=== PATIENT | female | born 1935 | race Caucasian/White ===

== ENCOUNTER → 2018-04-15 14:35 | Outpatient (REF) | payer MEDICARE, OTHER, SELFPAY | LOC: LAB 14:35 | PROVIDERS: Visit Provider Internal Medicine | DX: L08.9 Local infection of the skin and subcutaneous tissue, unspecified (principal) | CPT/HCPCS: 87070; 87075; 87205 ==

== ENCOUNTER → 2018-04-15 16:03 | Outpatient (CLI) | payer MEDICARE, OTHER, SELFPAY | PROVIDERS: PCP Specialist; Visit Provider Internal Medicine | DX: L08.9 Local infection of the skin and subcutaneous tissue, unspecified (principal); R60.0 Localized edema; I87.2 Venous insufficiency (chronic) (peripheral); L97.812 Non-pressure chronic ulcer of other part of right lower leg with fat layer exposed | CPT/HCPCS: 11042; 99213 ==

== ENCOUNTER → 2018-04-22 10:15 | Outpatient (CLI) | payer MEDICARE, OTHER, SELFPAY | PROVIDERS: PCP Specialist; Visit Provider Internal Medicine | DX: I87.2 Venous insufficiency (chronic) (peripheral) (principal); L97.812 Non-pressure chronic ulcer of other part of right lower leg with fat layer exposed; M79.661 Pain in right lower leg; R60.0 Localized edema | CPT/HCPCS: 11042 ==

== ENCOUNTER → 2018-04-29 10:19 | Outpatient (CLI) | payer MEDICARE, OTHER, SELFPAY ==
--- NOTE | 2018-04-29 | OV.WND_ITS ---
Progress Note Details Patient Name: Rebecca Belle Patient Number: [id number] PatientPatientDate: 04/29/2018 Clinician: Dacia Marcus Physician / Retail Beauty Specialist: Naseem Weiner SUBJECTIVE Chief Complaint This information was obtained from the patient Right Pre-Tibia wound from a fall. Allergies hydrocodone (Severity: Moderate, Reaction: Nausea) HPI This information was obtained from the patient 04/29/18. Seen by Dr. Weiner. The patient reports significant improvement in terms of pain and drainage associated with the right lower leg trauma wound since her last visit and she continues to applying topical gentamicin to treat the wound infection. 04/22/18. Seen by Dr. Weiner. The patient's wound culture from her last visit was unremarkable however she continues to report some moderate, intermittent pain associated with the right lower leg trauma wounds. She also has some chronic right lower leg swelling however does not wear a compression stocking. 04/15/18. Seen by Dr. Weiner. The patient's new to our clinic and presents with a chronic right lower leg trauma wound that occurred about a month ago when she fell down her steps while carrying her cat. She states it's painful despite completing a course of Keflex recently however she does not report fevers or feeling unwell otherwise. Past Medical History This information was obtained from the patient Patient has a medical history of: Dementia Leg Ulcer Arthritis Hyperlipidemia Complaints and Symptoms This information was obtained from the patient Patient complains of: General Notes: I have reviewed and concur with the Review of Systems and Past Family Social History documents completed by the clinician, I have reviewed and concur with the Wound Assessment document completed by the clinician Cardiovascular (Central/Peripheral): Lower extremity (leg) swelling Ear/Nose/Mouth/Throat: Hearing Loss / Aid Hematologic/Lymphatic: Bleeding Tendency Integumentary (Hair/Skin/Nails): Open Sore Prior Wound History: Drainage, Erythema, Pain Psychiatric: Memory Loss Patient denies complaints or symptoms related to: Cardiovascular (Central): Irregular heart beat Cardiovascular (Central/Peripheral): Intermittent Claudication, Lower extremity (leg) resting pain Constitutional Symptoms (General Health): Chills, Fever Hematologic/Lymphatic: Bleeding / Clotting Disorders Neurological: Loss of Protective Sensation Respiratory: Shortness of Breath Additional Information Does patient have a history of Cancer? Yes? Complete all questions.: Yes Location of Cancer: Breast Cancer. OBJECTIVE Constitutional BP elevated; Afebrile; Alert and in no distress. Well developed. Alert. Clean appearing.. Height/Length: 65 in (165.1 cm), Weight: 133.8 lbs (60.82 kgs), BMI: 22.3, Temperature: 98.3 ?F (36.83 ?C), Pulse: 71 bpm, Respiratory Rate: 18 breaths/min, Blood Pressure: 154/81 mmHg, Pulse Oximetry: 98 %. Respiratory: No respiratory distress. Even respirations and without use of accessory muscles.. Cardiovascular: 1+ right lower extremity edema. Integumentary (Hair, Skin) No periwound erythema, warmth, or significant drainage. No periwound rashes appreciated or noted otherwise.. Refer to appropriate clinician wound documentation for this visit; right lower leg wound extends to subcut with base partially covered with pink granulation, remainder fibrin and slough. Wound #1 Right, Lateral Leg is a chronic Full Thickness Venous Ulcer and has received a status of Not Healed. Subsequent wound encounter measurements are 0.1cm length x 0.1cm width x 0.1cm depth, with an area of 0.01 sq cm and a volume of 0.001 cubic cm. No tunneling has been noted. No sinus tract has been noted. No undermining has been noted. There is a small amount of serosanguineous drainage noted which has no odor. The patient reports a wound pain of level 0/10. The wound margin is attached. Wound bed has Yes epithelialization, No eschar, Yes slough, No granulation. The periwound skin texture is normal. The periwound skin moisture is normal. The periwound skin color is normal. The temperature of the periwound skin is WNL. Periwound skin does not exhibit signs or symptoms of infection. Local Pulse is Palpable. Wound #2 Right, Medial Leg is a chronic Full Thickness Venous Ulcer and has received a status of Not Healed. Subsequent wound encounter measurements are 0.5cm length x 0.1cm width x 0.1cm depth, with an area of 0.05 sq cm and a volume of 0.005 cubic cm. No tunneling has been noted. No sinus tract has been noted. No undermining has been noted. There is a scant amount of serosanguineous drainage noted which has no odor. The patient reports a wound pain of level 0/10. The wound margin is attached. Wound bed has No epithelialization, No eschar, Yes slough, Yes bright red, pink, spongy granulation. The periwound skin moisture is normal. The periwound skin exhibited: Edema, Erythema. The temperature of the periwound skin is WNL. Periwound skin does not exhibit signs or symptoms of infection. Local Pulse is Palpable. Neurological: Cranial nerves grossly intact with symmetric function normal by informal observation.. ASSESSMENT Active Problems ICD-10 (Encounter Diagnosis) S81.801D - Unspecified open wound, right lower leg, subsequent encounter (Encounter Diagnosis) L08.9 - Local infection of the skin and subcutaneous tissue, unspecified PROCEDURES Wound #1 Wound #1 (Venous Ulcer) is located on the right, lateral leg. A skin/ subcutaneous tissue level surgical debridement with a total area debrided of 0.01 sq cm was performed by Naseem Weiner MD. Subcutaneous was removed along with devitalized tissue: exudate and slough. The following instrument(s) were used: curette. Pain control was achieved using 4% Lido. A time out was conducted prior to the start of the procedure. A minimal amount of bleeding was controlled with n/a. The procedure was tolerated well with a pain level of 0 throughout and a pain level of 0 following the procedure. Post Debridement Measurements: 0.1cm length x 0.1cm width x 0.2cm depth; with an area of 0.01 sq cm and a volume of 0.002 cubic cm; Wound #2 Wound #2 (Venous Ulcer) is located on the right, medial leg. A skin/ subcutaneous tissue level surgical debridement with a total area debrided of 0.05 sq cm was performed by Naseem Weiner MD. Subcutaneous was removed along with devitalized tissue: slough. The following instrument(s) were used: curette. Pain control was achieved using 4% Lido. A time out was conducted prior to the start of the procedure. A minimal amount of bleeding was controlled with n/a. The procedure was tolerated well with a pain level of 0 throughout and a pain level of 0 following the procedure. Post Debridement Measurements: 0.5cm length x 0.1cm width x 0.2cm depth; with an area of 0.05 sq cm and a volume of 0.01 cubic cm; Additional Information Muscle fascia or bone removed and sent to pathology?: No Muscle fascia or bone removed and sent to pathology?: No PLAN Wound Orders: Wound #1 Right, Lateral Leg Anesthetic Topical Xylocaine to wound bed. - In clinic only Cleanser Cleanse Wound: - Normal Saline in Clinic. May use distilled water at home May Shower. - Please avoid getting tap water in wound or on dressing. May use cast protector purchased from pharmacy. Topical Treatments Antibiotic/Antimicrobial Ointment/Cream. - Gentamicin ointment. Dressings Primary dressing: - Covrsite, or any four sided bandage. Change Dressing: - Daily Wound #2 Right, Medial Leg Anesthetic Topical Xylocaine to wound bed. - In clinic only Cleanser Cleanse Wound: - Normal Saline in Clinic. May use distilled water at home May Shower. - Please avoid getting tap water in wound or on dressing. May use cast protector purchased from pharmacy. Topical Treatments Antibiotic/Antimicrobial Ointment/Cream. - Gentamicin ointment. Dressings Primary dressing: - Covrsite, or any four sided bandage. Change Dressing: - Daily Additional Orders: Follow-Up Appointments Return Appointment: - - One week Other information: If you develop fever, chills, increased pain, drainage, redness or swelling please call our office. If after hours, respond to the ER. Should you experience any significant changes in your wound(s) or have any questions regarding your home care instructions please contact the wound center @ [phone]. If after hours, contact your primary care physician or go to the hospital emergency room. Scribing Attestation I attest, as the nurse, that I scribed these orders for the physician. I've reviewed the clinician's documentation and agree with the evaluation and plan as written. In addition the patient's wound demonstrates evidence of non-viable devitalized tissue which will continue to benefit from sharp debridement to help promote granulation and expedite healing. Electronic Signature(s) Signed By: Date: Naseem Weiner MD 04/30/2018 09:38:18 Entered By: Naseem Weiner on 04/30/2018 09:33:55 Addendum at 05/20/2018 11:43:48 The right lower leg wound is a trauma wound, not a venous ulcer. Addendum Signed By: Naseem Weiner on 05/20/2018 11:43:48
== END ==
PROVIDERS: PCP Specialist; Visit Provider Internal Medicine
DX: S81.801A Unspecified open wound, right lower leg, initial encounter (principal); L08.9 Local infection of the skin and subcutaneous tissue, unspecified
CPT/HCPCS: 11042

== ENCOUNTER → 2018-05-07 10:29 | Outpatient (CLI) | payer MEDICARE, OTHER, SELFPAY ==
--- NOTE | 2018-05-07 | OV.WND_ITS ---
Progress Note Details Patient Name: Rebecca Belle Patient Number: [id number] PatientPatientDate: 05/07/2018 Clinician: Maxine Hobbs Clinician Cosigner: Savannah Brown Physician / Salesperson Meats: Naseem Weiner SUBJECTIVE Chief Complaint This information was obtained from the patient Right Pre-Tibia wound from a fall. Allergies hydrocodone (Severity: Moderate, Reaction: Nausea) HPI This information was obtained from the patient 05/07/18. Seen by Dr. Weiner. The patient reports significant improvement in terms of pain and drainage associated with the right lower leg trauma wound since her last visit. 04/29/18. Seen by Dr. Weiner. The patient reports significant improvement in terms of pain and drainage associated with the right lower leg trauma wound since her last visit and she continues to applying topical gentamicin to treat the wound infection. 04/22/18. Seen by Dr. Weiner. The patient's wound culture from her last visit was unremarkable however she continues to report some moderate, intermittent pain associated with the right lower leg trauma wounds. She also has some chronic right lower leg swelling however does not wear a compression stocking. 04/15/18. Seen by Dr. Weiner. The patient's new to our clinic and presents with a chronic right lower leg trauma wound that occurred about a month ago when she fell down her steps while carrying her cat. She states it's painful despite completing a course of Keflex recently however she does not report fevers or feeling unwell otherwise. Past Medical History This information was obtained from the patient Patient has a medical history of: Dementia Leg Ulcer Arthritis Hyperlipidemia Complaints and Symptoms This information was obtained from the patient Patient complains of: General Notes: I have reviewed and concur with the Review of Systems and Past Family Social History documents completed by the clinician, I have reviewed and concur with the Wound Assessment document completed by the clinician Cardiovascular (Central/Peripheral): Lower extremity (leg) swelling Ear/Nose/Mouth/Throat: Hearing Loss / Aid Hematologic/Lymphatic: Bleeding Tendency Integumentary (Hair/Skin/Nails): Open Sore Prior Wound History: Drainage, Erythema, Pain Psychiatric: Memory Loss Patient denies complaints or symptoms related to: Cardiovascular (Central): Irregular heart beat Cardiovascular (Central/Peripheral): Intermittent Claudication, Lower extremity (leg) resting pain Constitutional Symptoms (General Health): Chills, Fever Hematologic/Lymphatic: Bleeding / Clotting Disorders Neurological: Loss of Protective Sensation Respiratory: Shortness of Breath Additional Information Does patient have a history of Cancer? Yes? Complete all questions.: Yes Location of Cancer: Breast Cancer. OBJECTIVE Constitutional BP elevated; Afebrile; Alert and in no distress. Well developed. Alert. Clean appearing.. Height/Length: 65 in (165.1 cm), Weight: 131.9 lbs (59.95 kgs), BMI: 21.9, Temperature: 98.4 ?F (36.89 ?C), Pulse: 68 bpm, Respiratory Rate: 16 breaths/min, Blood Pressure: 160/75 mmHg, Pulse Oximetry: 99 %. Ears, Nose, Mouth, and Throat: No clinically significant hearing loss on informal examination. Cardiovascular: 1+ right lower extremity edema. Integumentary (Hair, Skin) No periwound erythema, warmth, or significant drainage. No periwound rashes appreciated or noted otherwise.. Refer to appropriate clinician wound documentation for this visit; blistering noted in the periwound area/s. Wound #1 Right, Lateral Leg is a chronic Full Thickness Venous Ulcer and has received an outcome of Healed - no new wound(s). Subsequent wound encounter measurements are 0cm length x 0cm width x 0cm depth, with an area of 0 sq cm and a volume of 0 cubic cm. No tunneling has been noted. No sinus tract has been noted. No undermining has been noted. There was no drainage noted. The patient reports a wound pain of level 0/10. The wound margin is attached. Wound bed has Yes epithelialization, No eschar, No slough, No granulation. The periwound skin texture is normal. The periwound skin moisture is normal. The periwound skin color is normal. The temperature of the periwound skin is WNL. Periwound skin does not exhibit signs or symptoms of infection. Local Pulse is Palpable. Wound #2 Right, Medial Leg is a chronic Full Thickness Venous Ulcer and has received an outcome of Continued improvement expected post discharge. Subsequent wound encounter measurements are 0.3cm length x 0.4cm width x 0.1cm depth, with an area of 0.12 sq cm and a volume of 0.012 cubic cm. No tunneling has been noted. No sinus tract has been noted. No undermining has been noted. There was no drainage noted. The patient reports a wound pain of level 0/10. The wound margin is attached. Wound bed has No epithelialization , No eschar, Yes slough, No granulation. The periwound skin moisture is normal. The periwound skin exhibited: Edema. The periwound skin did not exhibit: Brawny Induration, Excoriation, Induration, Callus, Crepitus, Fluctuance, Friable, Rash, Atrophie [place], Cyanosis, Ecchymosis, Erythema, Hemosiderosis, Pallor, Rubor. The temperature of the periwound skin is WNL. Periwound skin does not exhibit signs or symptoms of infection. Local Pulse is Palpable. Neurological: Cranial nerves grossly intact with symmetric function normal by informal observation.. ASSESSMENT Active Problems ICD-10 (Encounter Diagnosis) S81.801D - Unspecified open wound, right lower leg, subsequent encounter PROCEDURES Wound #2 Wound #2 (Venous Ulcer) is located on the right, medial leg. A selective debridement with a total area debrided of 0.08 sq cm was performed by Naseem Weiner MD. to remove devitalized tissue: exudate and slough. The following instrument(s) were used: curette. Pain control was achieved using 4% Lido. A time out was conducted prior to the start of the procedure. No bleeding occurred. The procedure was tolerated well with a pain level of 0 throughout and a pain level of 0 following the procedure. Post Debridement Measurements: 0.4cm length x 0.2cm width x 0.1cm depth; with an area of 0.08 sq cm and a volume of 0.008 cubic cm; PLAN Wound Orders: Wound #2 Right, Medial Leg Anesthetic Topical Xylocaine to wound bed. - In clinic only Cleanser Cleanse Wound: - Normal Saline in Clinic. May use distilled water at home May Shower. - Please avoid getting tap water in wound or on dressing. May use cast protector purchased from pharmacy. Dressings Primary dressing: - Covrsite, or any four sided bandage. Change Dressing: - Every other day. Additional Orders: Compression/Edema Control Single Layer Compression Hose - Tetragrip E. On in the am, off at night. Follow-Up Appointments Discharge from Outpatient Services. - No need to follow-up at this time. Wound expected to heal. Please call if you feel you need to be seen. Scribing Attestation I attest, as the nurse, that I scribed these orders for the physician. I've reviewed the clinician's documentation and agree with the evaluation and plan as written. In addition, the patient's ulcer demonstrates evidence of non-viable devitalized tissue which will continue to benefit from sharp debridement to help promote granulation and expedite healing. Electronic Signature(s) Signed By: Date: Naseem Weiner MD 05/08/2018 09:41:06 Entered By: Naseem Weiner on 05/08/2018 09:28:00
== END ==
PROVIDERS: PCP Specialist; Visit Provider Internal Medicine
DX: S81.801A Unspecified open wound, right lower leg, initial encounter (principal)
CPT/HCPCS: 97597